=== PATIENT | female | born 1950 | race Caucasian/White ===

== ENCOUNTER 2016-09-16 14:21 | Emergency (ER) | payer MEDICARE, OTHER | END 2016-09-16 15:39 | disposition home or self-care (01) | DX: R21 Rash and other nonspecific skin eruption (principal); R03.0 Elevated blood-pressure reading, without diagnosis of hypertension ==

== ENCOUNTER 2017-04-06 11:56 | Inpatient (IN) | payer MEDICARE, OTHER ==
[2017-04-06] MEDS ORDERED: SODIUM CHLORIDE 0.9% 1,000 ML IV ONE ×2 (13:20)
--- NOTE | 2017-04-06 13:20 | ED Physician Documentation ---
PD HPI ABD PAIN - Stated complaint Stated Complaint: BLOATING/PAIN ALL OVER - Chief complaint Chief Complaint: Abd Pain - History obtained from History obtained from: Patient, Family - History of Present Illness Timing - onset: How many days ago (3) Timing - duration: Days (3) Timing - details: Gradual onset Pain level max: 9 Pain level now: 6 Location: All over / everywhere (worse epigastric) Improved by: Other (nothing) Worsened by: Other (nothing) Associated symptoms: Nausea. No: Fever, Vomiting, Diarrhea, Constipation, Dysuria, Hematuria, Chest pain, Dizzy, Near syncope / syncope Similar symptoms before: No diagnosis Recently seen: Clinic (sent from clinic for eval. found to have elevated WBC on lab testing today.) - Additional information Additional information: 66 yo F with h/o cardiac stents 10 years ago. Remote h/o of appendectomy and cholecystectomy. States had CT enterography 3 weeks ago. States epigastric abd pain x 3 days. Cramping. Worse at night. Review of Systems Ten Systems: 10 systems reviewed and negative Constitutional: reports: Chills. denies: Fever Nose: denies: Rhinorrhea / runny nose Throat: denies: Dental pain / toothache, Sore throat Cardiac: denies: Chest pain / pressure Respiratory: denies: Dyspnea GI: reports: Nausea. 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 - Present Medications Home Medications: Ambulatory Orders Medication Instructions Recorded Confirmed Amlodipine Besylate/Benazepril 1 tab PO DAILY 03/21/14 04/06/17 [Lotrel 5-40 mg Capsule] Atenolol 100 mg PO DAILY 03/21/14 04/06/17 Esomeprazole Magnesium [Nexium] 40 mg PO DAILY 03/21/14 04/06/17 Rosuvastatin Calcium [Crestor] 10 mg PO DAILY 03/21/14 04/06/17 Clopidogrel Bisulfate [Plavix] 75 mg ORAL DAILY 09/16/16 04/06/17 - Allergies Allergies/Adverse Reactions: Allergies Allergy/AdvReac Type Severity Reaction Status Date / Time iopamidol [From Isovue-128] Allergy Anaphylaxis Verified 04/06/17 15:11 acetaminophen [From Percocet] AdvReac Unknown Verified 04/06/17 12:03 aspirin AdvReac Unknown Verified 04/06/17 12:03 caffeine [From Norgesic] AdvReac Unknown Verified 04/06/17 12:03 codeine phosphate * AdvReac Unknown Verified 04/06/17 12:03 [From Tylenol-Codeine #3] hydrochlorothiazide AdvReac Unknown Verified 04/06/17 12:03 ibuprofen AdvReac Unknown Verified 04/06/17 12:03 indomethacin AdvReac Unknown Verified 04/06/17 12:03 meperidine HCl * AdvReac Unknown Verified 04/06/17 12:03 [From Demerol] NSAIDS (Non-Steroidal AdvReac Unknown Verified 04/06/17 12:03 Anti-Inflamma orphenadrine AdvReac Unknown Verified 04/06/17 12:03 orphenadrine citrate * AdvReac Unknown Verified 04/06/17 12:03 [From Norgesic] oxycodone HCl * AdvReac Unknown Verified 04/06/17 12:03 [From Percocet] tolmetin AdvReac Unknown Verified 04/06/17 12:03 - Social History Does the pt smoke?: No Smoking Status: Never smoker Does the pt drink ETOH?: No Does the pt have substance abuse?: No - Immunizations Immunizations are current?: No - POLST Patient has POLST: No PD ED PE NORMAL - Vitals Vital signs reviewed: Yes - General General: Alert and oriented X 3, No acute distress, Well developed/nourished - HEENT HEENT: PERRL, Moist mucous membranes - Neck Neck: Supple, no meningeal sign - Cardiac Cardiac: RRR, Strong equal pulses - Respiratory Respiratory: No respiratory distress, Clear bilaterally - Abdomen Abdomen: Soft, Other (TTP epigastric No peritoneal signs) - Back Back: No CVA TTP, No spinal TTP - Derm Derm: Warm and dry, No rash - Extremities Extremities: No edema - Neuro Neuro: Alert and oriented X 3 - Psych Psych: Normal mood, Normal affect Results - Vitals Vitals: Vital Signs - 24 hr 04/06/17 11:59 Temperature 36.7 C Heart Rate 79 Respiratory 16 Rate Blood Pressure 118/69 O2 Saturation 99 Oxygen O2 Source Room air - Labs Labs: Laboratory Tests 04/06/17 04/06/17 14:20 14:20 WBC 16.0 H RBC 4.33 Hgb 12.5 Hct 37.3 MCV 86.2 MCH 28.9 MCHC 33.6 RDW 14.2 Plt Count 226 MPV 8.4 Neut # 12.7 H Lymph # 1.5 [place] # 1.2 H Eos # 0.6 Baso # 0.1 Absolute Nucleated RBC 0.00 Nucleated RBCs 0.0 Sodium 134 L Potassium 4.2 Chloride 98 L Carbon Dioxide 26 Anion Gap 10.0 BUN 13 Creatinine 0.9 Estimated GFR (MDRD) 63 L Glucose 117 H Calcium 9.4 Total Bilirubin 1.0 AST 91 H ALT 77 H Alkaline Phosphatase 115 Total Protein 7.9 Albumin 3.7 Globulin 4.2 Albumin/Globulin Ratio 0.9 L Lipase 198 H - Rads (name of study) CT abd/pelvis Radiology: Prelim report reviewed, EMP read contemporaneously, See rad report ( Markedly abnormal pancreas and peripancreatic adenopathy and edema. Although the findings may just be secondary to chronic recurrent pancreatitis, the extensive disproportionately number of enlarged adjacent adenopathy is worrisome for underlying pancreatic malignancy. MRI of the pancreas recommended to further evaluate since this lady is allergic to intravenous contrast. 2. Mild extrahepatic biliary duct dilatation. 3. Colonic diverticulosis. 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 Found to have pancreatitis on CT scan and laboratory testing. Is already status post cholecystectomy. Denies any alcohol use. She is on an LINK inhibitor which may be causing her pancreatitis. May be idiopathic. May be secondary to triglycerides? Unable to use IV contrast for her CT scan as she is allergic to this. Will keep her n.p.o. and have her placed in the hospital for further evaluation and care. Discussed the case with Dr. Hernandez, hospitalist who accepts This document was made in part using voice recognition software. While efforts are made to proofread this document, sound alike and grammatical errors may occur. Departure - Departure Disposition: 66 [facility] DC/Xfer Clinical Impression: Pancreatitis Qualifiers: Chronicity: acute Pancreatitis type: unspecified pancreatitis type Acute pancreatitis complication: unspecified Qualified Code(s): K85.90 - Acute pancreatitis without necrosis or infection, unspecified Condition: Stable Discharge Date/Time: 04/06/17 18:45
[2017-04-06 14:27] LABS: BASOPHILS # (AUTO) 0.1 10^3/uL (0.0-0.1); BASOPHILS % (AUTO) 0.3 %; EOSINOPHILS # (AUTO) 0.6 10^3/uL (0.0-0.7); EOSINOPHILS % (AUTO) 3.6 %; HCT - HEMATOCRIT 37.3 % (37.0-47.0); HGB - HEMOGLOBIN 12.5 g/dL (12.0-16.0); LYMPHOCYTES # (AUTO) 1.5 10^3/uL (1.5-3.5); LYMPHOCYTES % (AUTO) 9.6 %; MEAN CORPUSCULAR HEMOGLOBIN 28.9 pg (27.0-31.0); MEAN CORPUSCULAR HGB CONC 33.6 g/dL (32.0-36.0); MEAN CORPUSCULAR VOLUME 86.2 fL (81.0-99.0); MEAN PLATELET VOLUME 8.4 fL (7.9-10.8); MONOCYTES # (AUTO) 1.2 10^3/uL (0.0-1.0); MONOCYTES % (AUTO) 7.4 %; NEUTROPHILS # (AUTO) 12.7 10^3/uL (1.5-6.6); NEUTROPHILS % (AUTO) 79.1 %; RED BLOOD COUNT 4.33 10^6/uL (4.20-5.40); RED CELL DISTRIBUTION WIDTH 14.2 % (12.0-15.0)
[2017-04-06 14:39] LABS: ALBUMIN/GLOBULIN RATIO 0.9 (1.0-2.2); CALCIUM 9.4 mg/dL (8.5-10.3); CREATININE 0.9 mg/dL (0.4-1.0); POTASSIUM 4.2 mmol/L (3.5-5.0); TOTAL PROTEIN 7.9 g/dL (6.7-8.2)
[2017-04-06] MEDS ORDERED: ACETAMINOPHEN 1,000 MG/100 ML 100 ML IV STA (16:22)
--- NOTE | 2017-04-06 16:28 | CT Preliminary Report ---
Exam: CT Abdomen/Pelvis W/O IMPRESSION: 1. Markedly abnormal pancreas and peripancreatic adenopathy and edema. Although the findings may just be secondary to chronic recurrent pancreatitis, the extensive disproportionately number of enlarged adjacent adenopathy is worrisome for underlying pancreatic malignancy. MRI of the pancreas recommende d to further evaluate since this lady is allergic to intravenous contrast. 2. Mild extrahepatic biliary duct dilatation. 3. Colonic diverticulosis. [facility] SITE ID: [id number]
--- NOTE | 2017-04-06 16:42 | CT Report ---
EXAM: CT ABDOMEN AND PELVIS EXAM DATE: 04/06/2017 04:03 PM. CLINICAL HISTORY: Epigastric pain for 3 days. COMPARISONS: None. TECHNIQUE: Routine helical CT imaging was performed through the abdomen and pelvis. IV contrast: None (contrast allergy). Enteric contrast: No. Reconstructions: Coronal and sagittal. In accordance with CT protocol optimization, one or more of the following dose reduction techniques w ere utilized for this exam: automated exposure control, adjustment of mA and/or KV based on patient s ize, or use of iterative reconstructive technique. FINDINGS: Lung Bases: Small hiatal hernia. Liver: Normal. No masses. Gallbladder/Bile Ducts: Gallbladder either surgically absent or extremely tiny. No intrahepatic bilia ry duct dilatation. Common bile duct measures 11 mm. Spleen: Normal caliber. Calcified granulomata. Pancreas: Head and uncinate process are enlarged. Body and tail of the pancreas of normal caliber. No pancreatic duct dilatation. Massive amount of adenopathy, with some lymph nodes ranging up to 2 cm i n cross-sectional diameter surrounding the entirety of the pancreas, embedded in a marked amount of a djacent edema. Small amount of linear fluid extends inferiorly from such along the posterior aspects of Gerota's fascia into the more inferior retroperitoneal space. No focal fluid collection evident. Adrenal Glands: Normal. Kidneys: Normal. 2 cm left renal cyst. No masses or hydronephrosis. Peritoneal Cavity/Bowel: Diverticuli of the colon. No free fluid, free air or adenopathy. No masses o r acute inflammatory process. Appendix not visualized. Pelvic Organs: Hysterectomy. No stones in the small caliber urinary bladder. No free fluid nor adnexa l mass lesions. Vasculature: No aneurysms or other significant abnormality. Bones: No bony metastatic disease. Moderate degenerative changes throughout the mildly scoliotic spin e. Other: None. IMPRESSION: 1. Markedly abnormal pancreas and peripancreatic adenopathy and edema. Although the findings may just be secondary to chronic recurrent pancreatitis, the extensive disproportionately number of enlarged adjacent adenopathy is worrisome for underlying pancreatic malignancy. MRI of the pancreas recommende d to further evaluate since this lady is allergic to intravenous contrast. 2. Mild extrahepatic biliary duct dilatation. 3. Colonic diverticulosis. [facility] Referring Provider Line: [phone] SITE ID: [id number]
[2017-04-06] MEDS ORDERED: ACETAMINOPHEN 1,000 MG/100 ML 100 ML IV ONE (17:24)
[2017-04-06] MEDS ORDERED: SODIUM CHLORIDE FLUSH 0.9% 10 ML SYRINGE IVP ONE (17:28)
[2017-04-06] MEDS ORDERED: ONDANSETRON ODT 4 MG TABLET TL PRN (17:33)
[2017-04-06] MEDS ORDERED: ACETAMINOPHEN 1,000 MG/100 ML 100 ML IV PRN (17:33)
[2017-04-06] MEDS ORDERED: ONDANSETRON 4 MG/2 ML VIAL IVP PRN (17:33)
[2017-04-06] MEDS ORDERED: ACETAMINOPHEN 325 MG TABLET PO PRN (17:33)
[2017-04-06] MEDS ORDERED: SODIUM CHLORIDE FLUSH 0.9% 10 ML SYRINGE IVP PRN (17:33)
[2017-04-06] MEDS: DEXTROSE 5%-0.45% NACL 1,000 ML IV SCH (18:55)
--- NOTE | 2017-04-06 18:59 | HISTORY & PHYSICAL EXAMINATION ---
DATE OF ADMISSION: 04/06/2017 PRIMARY CARE PHYSICIAN: Dr. Sotero Alfredo, [facility] CHIEF COMPLAINT: This is a 66-year-old lady admitted with a chief complaint of sudden onset upper abdominal pain for 3 days on and off. Seen by PCP today and she was sent to the emergency room by her PCP. Information was obtained from the patient, family and ER record. PROBLEM LIST: 1. Acute pancreatitis, etiology unknown. 2. Hyponatremia. 3. Elevated AST and ALT levels. 4. Leukocytosis. 5. Hypertension. 6. Hyperlipidemia. 7. History of coronary artery disease status post stent 10 years ago, on Plavix. CODE STATUS: FULL CODE. HISTORY OF PRESENT ILLNESS: This 66-year-old lady with history of hypertension, hyperlipidemia, coronary artery disease status post stenting 10 years ago, borderline diabetes on diet control was in her usual state of health until 3 days ago. She started to notice no good bowel movement at that time. around 6pm that day, she suddenly had severe cramps all the way across her abdomen to her back. She did not have nausea, vomiting, fevers. She thought she had gas or constipation. She drank some Sprite which resolved the pain in 2 hours. since then, she has had on and off abdominal cramps, mainly happen in the evening. She could not sleep very well. She even cried, which was unusual for her. The pain was not bothering her during the day. She walks 2 miles every day. She also noticed eating would aggravate the pain. So since Sunday she only had 2 bowls of cereal and some fruits. She has not had a similar experience before. Today she went to see her primary care doctor. In the clinic, she had a diarrhea like yellow bowel movement, which relieved some abdominal pain. After her blood test result was available, she was advised by her primary care doctor to visit the emergency room due to abnormality. In the emergency room, the patient was noted to have mild elevated lipase level 198 and leukocytosis of [address] of abdomen and pelvis. The results show abnormal pancreas and peripancreatic adenopathy and edema. Due to acute pancreatitis, etiology uncertain, the patient is admitted to the medical/ surgical floor for further evaluation. REVIEW OF SYSTEMS: The patient was seen in the emergency room. she has chills all the time on the daily basis but no fevers. She has denied chest pain, shortness of breath, dysuria. The patient lost 5-6 pounds in the past 1-1/2 months, mainly from walking. The weight loss was intentional. Negative findings in the rest of review of systems. PAST MEDICAL AND SURGICAL HISTORY: Besides mentioned above, the patient had appendectomy, cholecystectomy, bowel surgery, back surgery and hysterectomy. SOCIAL HISTORY: The patient quit smoking 15 years ago. She does not consume alcohol. Neither recreational drugs. She lives with her locally. FAMILY HISTORY: Mother of colon cancer. Father of cirrhosis. MEDICATIONS: 1. Atenolol 100 mg daily. 2. Lotrel 5/50, 1 daily. 3. Plavix 75 mg daily. 4. Crestor 10 mg daily. 5. Nexium 40 mg daily. ALLERGIES: 1. ASPIRIN. 2. DEMEROL. 3. IBUPROFEN. 4. HYDROCHLOROTHIAZIDE. 5. INDOMETHACIN 6. ANALGESIC AND NONSTEROIDAL ANTI-INFLAMMATORY DRUGS. 7. PERCOCET. 8. ORPHENADRINE CITRATE. 9. TOLMETIN SODIUM. 10. CODEINE. 11. MORPHINE. 12. FENTANYL. All the allergic reactions are severe with anaphylactic reaction. She has never had Dilaudid before. PHYSICAL EXAMINATION: CONSTITUTIONAL: In no acute distress. VITAL SIGNS: Temperature 36.7, heart rate 79, blood pressure 118/69, respirations 16, oxygen saturation 99% on room air. HEENT: Head atraumatic. PERRLA, normal conjunctivae. No jaundice. Oropharynx clear, no thrush. NECK: Supple. Thyroid impalpable. No lymphadenopathy. RESPIRATORY: Clear bilateral without wheezing or rhonchi, or rales. CARDIOVASCULAR: Regular heart rate and rhythm without murmur. GASTROINTESTINAL: Abdomen soft. Bowel tones present. She does have moderate tenderness around her upper abdomen to her back. Abdomen is not distended. No spleen and liver enlargement per palpation. MUSCULOSKELETAL: No edema noted. Muscle tone 5+ equally. SKIN: Warm and dry. NEUROLOGIC: Alert and oriented x3. Cranial nerves intact without focal deficits. PSYCHIATRIC: Calm and pleasant. LABORATORY: CMP shows sodium 134, potassium 4.2, chloride 98, serum bicarbonate of 26, BUN 13, creatinine 0.9, glucose 117, ALT is 77, AST 91, lipase level 198 , total bilirubin 1.0. CBC shows white blood cell count 16, hemoglobin 12.5, hematocrit 37.3, platelets 226. IMAGING: CT of abdomen and pelvis today shows abnormal pancreas and peripancreatic adenopathy and edema. MRI of the pancreas recommended for further evaluation. Mild extraoral hepatitic biliary ductal dilatation. Colonic diverticulosis. ASSESSMENT AND PLAN: 1. Acute pancreatitis, etiology uncertain. a. The patient is taking LINK inhibitor which could be a cause. We will hold her LINK inhibitor for now. b. The patient does not consume alcohol. Alcoholic pancreatitis is unlikely. c. The patient has history of gallbladder removed. She has normal total bilirubin, although her CAT scan showed mild common bile duct dilation. She could have had gallstones passing through the common bile duct, which contribute to pancreatitis. MRCP is ordered for further evaluation. d. Possible pancreatic cancer is another differential diagnosis. e. Possible unknown inflammatory process such as infection might be the factor to contribute. She does have elevated CRP level of 26.7 at the [facility]. Due to acute pancreatitis the patient will be n.p.o. except medications and sip rand. She will receive IV fluids for hydration. She has MULTIPLE MEDICATION ALLERGIES. For now we will use Tylenol IV or p.o. for her pain control. We will consider the Dilaudid IV for severe or breakthrough pain. If she is getting Dilaudid we will need to monitor her respiratory status closely for possible severe allergic reaction such as ANAPHYLAXIS. 2. Hypertension. We will continue the atenolol with parameters. 3. Hyperlipidemia. We will continue the Crestor. 4. History of coronary artery disease stenting x1 ten years ago. We will continue the Plavix. Meanwhile, we will use the Pepcid IV for GI protection. 5. Hyponatremia-- mild; monitor; on ivf 6. Elevated AST and ALT levels-- likely due to pancreatitis; CT of abdomen shows normal liver 7. Leukocytosis-- could be from pain vs infection/inflammation; monitor; clinically no respiratory symptoms; consider UA if no result available ( done in [facility]) 8. The patient will be on DVT prophylaxis with Lovenox. 9. Disposition: Likely the patient will be discharged back to home in 2-3 days if she is improving clinically. 10. Code status was addressed with her and her . She is a FULL CODE. TREATMENT PLAN: Reviewed with the patient and her at bedside. Both agreed to the hospitalization. JOB #: [id number] EXT JOB #:[id number] MAIRA
[2017-04-06] MEDS: ATORVASTATIN 10 MG TABLET PO SCH (21:09)
[2017-04-06] MEDS: SODIUM CHLORIDE FLUSH 0.9% 10 ML SYRINGE IVP SCH (21:09)
[2017-04-06] MEDS: FAMOTIDINE 20 MG/50 ML 50 ML IV SCH (21:09)
[2017-04-07] MEDS: DEXTROSE 5%-0.45% NACL 1,000 ML IV SCH ×3 (03:58→23:55)
[2017-04-07] MEDS ORDERED: LORazepam 2 MG/ML SYRINGE IVP SCH (05:00)
[2017-04-07] MEDS: SODIUM CHLORIDE FLUSH 0.9% 10 ML SYRINGE IVP SCH ×3 (05:21→20:29)
[2017-04-07 06:34] LABS: BASOPHILS % (AUTO) 0.2 %; EOSINOPHILS # (AUTO) 0.7 10^3/uL (0.0-0.7); EOSINOPHILS % (AUTO) 5.3 %; HCT - HEMATOCRIT 35.1 % (37.0-47.0); HGB - HEMOGLOBIN 11.8 g/dL (12.0-16.0); LYMPHOCYTES % (AUTO) 8.1 %; MEAN CORPUSCULAR HEMOGLOBIN 29.3 pg (27.0-31.0); MEAN CORPUSCULAR HGB CONC 33.5 g/dL (32.0-36.0); MEAN CORPUSCULAR VOLUME 87.3 fL (81.0-99.0); MEAN PLATELET VOLUME 8.4 fL (7.9-10.8); MONOCYTES # (AUTO) 0.8 10^3/uL (0.0-1.0); MONOCYTES % (AUTO) 6.5 %; NEUTROPHILS # (AUTO) 10.1 10^3/uL (1.5-6.6); NEUTROPHILS % (AUTO) 79.9 %; RED BLOOD COUNT 4.02 10^6/uL (4.20-5.40); RED CELL DISTRIBUTION WIDTH 14.2 % (12.0-15.0); UNCORRECTED WHITE BLOOD COUNT 12.6 x10^3/uL; WHITE BLOOD COUNT 12.6 x10^3/uL (4.8-10.8)
[2017-04-07 06:55] LABS: ALBUMIN/GLOBULIN RATIO 0.9 (1.0-2.2); BILIRUBIN,TOTAL 0.8 mg/dL (0.2-1.0); CALCIUM 8.7 mg/dL (8.5-10.3); CREATININE 0.8 mg/dL (0.4-1.0); POTASSIUM 4.1 mmol/L (3.5-5.0); TOTAL PROTEIN 6.7 g/dL (6.7-8.2)
[2017-04-07] MEDS: CLOPIDOGREL 75 MG TABLET PO SCH (08:46)
[2017-04-07] MEDS: ATENOLOL 25 MG TABLET PO SCH (08:46)
[2017-04-07] MEDS: POLYETHYLENE GLYCOL 3350 17 GM PACKET PO SCH (08:48)
[2017-04-07] MEDS ORDERED: NON FORMULARY MED (Atenolol [Atenolol] 100 MG) PO SCH (09:00)
[2017-04-07] MEDS ORDERED: ENOXAPARIN 40 MG/0.4 ML SYRINGE SUBQ SCH (09:00)
[2017-04-07] MEDS ORDERED: diphenhydrAMINE INJ 50 MG/ML VIAL IVP PRN (09:57)
[2017-04-07 10:39] LABS: BILIRUBIN,URINE NEGATIVE (NEGATIVE)
--- NOTE | 2017-04-07 11:00 | PROVIDER PROGRESS NOTE ---
Assessment/Plan - Problem List (1) Pancreatitis Qualifiers: Chronicity: acute Pancreatitis type: unspecified pancreatitis type Acute pancreatitis complication: unspecified Qualified Code(s): K85.90 - Acute pancreatitis without necrosis or infection, unspecified Assessment/Plan: etiology uncertain, improving clinically hold her ACEI pending MRCP result prn tylenol for pain after MRCP, diet as tolerated (2) Elevated liver enzymes Assessment/Plan: likely due to pancreatitis liver looks normal in CT of abdomen no significant changes over the night (3) Leukocytosis Assessment/Plan: from pain, inflammation improving clinically no signs of respiratory infection noted; check UA (4) Hypertension Assessment/Plan: on Atenolol; controlled (5) Hyperlipidemia Assessment/Plan: on crestor (6) Hyponatremia Assessment/Plan: resolving; on iv fluid (7) CAD (coronary artery disease) Assessment/Plan: stable; continue plavix; use Pepcid for GI protection - Current Meds Current Meds: Current Medications Generic Name Dose Route Start Last Admin Trade Name Freq PRN Reason Stop Dose Admin Atenolol 100 mg 04/07/17 09:00 04/07/17 08:46 Tenormin PO 100 mg DAILY SARAH Administration Atorvastatin Calcium 20 mg 04/06/17 21:00 04/06/17 21:09 Lipitor PO Not Given QPM SARAH Clopidogrel Bisulfate 75 mg 04/07/17 09:00 04/07/17 08:46 Plavix PO 75 mg DAILY SARAH Administration Dextrose/Sodium Chloride 1,000 mls @ 100 mls/hr 04/06/17 18:00 04/07/17 03:58 D5.45ns IV 100 mls/hr .Q10H SARAH Administration Famotidine 50 mls @ 100 mls/hr 04/06/17 21:00 04/06/17 21:09 Pepcid 20 Mg/50 Ml IV Not Given BID SARAH Polyethylene Glycol 17 gm 04/07/17 09:00 04/07/17 08:48 Miralax PO Not Given DAILY SARAH Sodium Chloride 10 ml 04/06/17 17:33 04/07/17 09:56 Normal Saline Flush 0.9% IVP 10 ml PRN PRN Administration NEEDED PER PROVIDER ORDERS Sodium Chloride 10 ml 04/06/17 22:00 04/07/17 05:21 Normal Saline Flush 0.9% IVP Not Given Q8HR SARAH - Lab Result Fish Bone Diagrams: 04/07/17 06:00 04/07/17 06:00 Other Lab Results: reviewed tele; sinus rhythm - Diagnostic Imaging Results Diagnostic Imaging Results: Final report reviewed - Additional Planning Condition/Complexity: Improved My Orders: My Active Orders 04/06/17 18:09 Message to Nursing [RC] CONT 04/06/17 21:00 Atorvastatin [Lipitor] 20 mg PO QPM 04/07/17 MRCP W/O [MRI] Stat 04/07/17 09:00 Atenolol [Tenormin] 100 mg PO DAILY Clopidogrel [Plavix] 75 mg PO DAILY 04/07/17 09:40 UA, MICROSCOPIC IF INDICATED [URIN] Routine 04/07/17 09:57 diphenhydrAMINE INJ [Benadryl Inj] 25 mg IVP PRN PRN Plan Discussed with:: Patient Time Spent: 15-30 minutes Subjective - Subjective Patient Reports: Other (hungry; no pain at all) Nursing Reports: No Complaints Objective Vital Signs: Vital Signs - 24 hr 04/06/17 04/06/17 04/06/17 18:24 18:49 19:15 Temperature 36.9 C 37.2 C Heart Rate 82 Heart Rate [ 76 64 Brachial] Respiratory 14 18 Rate Blood Pressure 126/63 Blood Pressure 117/49 L [Left Brachial artery] Blood Pressure 99/63 [Right Brachial artery] O2 Saturation 100 92 96 04/06/17 04/06/17 04/07/17 20:11 23:32 05:17 Temperature 36.7 C 36.4 C L 37.8 C H Heart Rate Heart Rate [ 78 71 83 Brachial] Respiratory 20 20 18 Rate Blood Pressure Blood Pressure 112/55 L 113/61 114/61 [Left Brachial artery] Blood Pressure [Right Brachial artery] O2 Saturation 96 100 95 04/07/17 07:59 Temperature 37.0 C Heart Rate Heart Rate [ 88 Brachial] Respiratory 16 Rate Blood Pressure Blood Pressure 123/52 L [Left Brachial artery] Blood Pressure [Right Brachial artery] O2 Saturation 93 Oxygen O2 Source Room air I&O (Last 24 Hrs): Intake and Output Totals x24h 04/05/17 04/06/17 04/07/17 23:59 23:59 23:59 Intake Total 1125 Output Total 1 Balance 1124 General: Alert, Oriented x3, Cooperative HEENT: Atraumatic, PERRLA, EOMI Neck: Supple Neuro: Alert, Non Focal Cardiovascular: Regular rate, Normal S1, Normal S2 Abdomen: Normal bowel sounds, Soft, No tenderness Extremities: No clubbing, No cyanosis Skin: No rashes - Results Results: Laboratory Results WBC 12.6 x10^3/uL (4.8-10.8) H 04/07/17 06:00 RBC 4.02 10^6/uL (4.20-5.40) L 04/07/17 06:00 Hgb 11.8 g/dL (12.0-16.0) L 04/07/17 06:00 Hct 35.1 % (37.0-47.0) L 04/07/17 06:00 MCV 87.3 fL (81.0-99.0) 04/07/17 06:00 MCH 29.3 pg (27.0-31.0) 04/07/17 06:00 MCHC 33.5 g/dL (32.0-36.0) 04/07/17 06:00 RDW 14.2 % (12.0-15.0) 04/07/17 06:00 Plt Count 210 10^3/uL (130-450) 04/07/17 06:00 MPV 8.4 fL (7.9-10.8) 04/07/17 06:00 Neut # 10.1 10^3/uL (1.5-6.6) H 04/07/17 06:00 Lymph # 1.0 10^3/uL (1.5-3.5) L 04/07/17 06:00 [place] # 0.8 10^3/uL (0.0-1.0) 04/07/17 06:00 Eos # 0.7 10^3/uL (0.0-0.7) 04/07/17 06:00 Baso # 0.0 10^3/uL (0.0-0.1) 04/07/17 06:00 Absolute Nucleated RBC 0.00 x10^3/uL 04/07/17 06:00 Nucleated RBCs 0.0 /100WBC 04/07/17 06:00 Sodium 140 mmol/L (135-145) 04/07/17 06:00 Potassium 4.1 mmol/L (3.5-5.0) 04/07/17 06:00 Chloride 107 mmol/L (101-111) 04/07/17 06:00 Carbon Dioxide 25 mmol/L (21-32) 04/07/17 06:00 Anion Gap 8.0 (6-13) 04/07/17 06:00 BUN 10 mg/dL (6-20) 04/07/17 06:00 Creatinine 0.8 mg/dL (0.4-1.0) 04/07/17 06:00 Estimated GFR (MDRD) 72 (>89) L 04/07/17 06:00 Glucose 172 mg/dL (70-100) H 04/07/17 06:00 Calcium 8.7 mg/dL (8.5-10.3) 04/07/17 06:00 Total Bilirubin 0.8 mg/dL (0.2-1.0) 04/07/17 06:00 AST 81 IU/L (10-42) H 04/07/17 06:00 ALT 74 IU/L (10-60) H 04/07/17 06:00 Alkaline Phosphatase 120 IU/L (42-121) 04/07/17 06:00 Total Protein 6.7 g/dL (6.7-8.2) 04/07/17 06:00 Albumin 3.1 g/dL (3.2-5.5) L 04/07/17 06:00 Globulin 3.6 g/dL (2.1-4.2) 04/07/17 06:00 Albumin/Globulin Ratio 0.9 (1.0-2.2) L 04/07/17 06:00 Lipase 184 U/L (22-51) H 04/07/17 06:00
[2017-04-07 11:04] LABS: UA w/ MICROSCOPIC CHARGE YES
[2017-04-07] MEDS: FAMOTIDINE 20 MG/50 ML 50 ML IV SCH ×2 (11:38→20:29)
--- NOTE | 2017-04-07 11:51 | MRI Report ---
EXAM: MR ABDOMEN WITHOUT CONTRAST (MR CHOLANGIOPANCREATOGRAPHY) EXAM DATE: 04/07/2017 11:08 AM. CLINICAL HISTORY: Acute pancreatitis unknown etiology. COMPARISON: Abdomen/pelvis CT 04/06/2017. TECHNIQUE: Multiplanar breath-hold T1 and T2 sequences obtained through the abdomen on an MR scanner. Dedicated 2D and 3D MRCP sequences obtained through the biliary and pancreatic ducts. No intravenous contrast given. FINDINGS: Lung Bases: The visualized lung bases are clear. There is a small hiatal hernia. Liver: The liver has normal size, morphology and signal. No evidence of mass. The intrahepatic bile d ucts appear normal. CBD: Prominent caliber of the extrahepatic bile duct measuring up to 0.8 cm in diameter proximally an d smoothly tapering distally. No focal filling defects are identified. Gallbladder: The gallbladder appears to be absent. Pancreas: There is mild peripancreatic and retroperitoneal edema. The pancreas itself appears unremar kable although evaluation for masses limited in the absence of intravenous contrast medium. The pancr eatic duct measures 1 mm in diameter and appears normal with no stone or stricture. Spleen: The spleen appears normal. Kidneys and Adrenals: The kidneys appear normal with no mass or hydronephrosis. There are no cysts in the kidneys. The adrenals appear normal. Bowel: The small bowel and colon appear normal with no inflammation or obstruction. Retroperitoneum: There is retroperitoneal adenopathy left of the aorta. For example, series 501 image 8 measuring 0.8 x 1.5 cm. IMPRESSION: 1. There is peripancreatic and retroperitoneal edema consistent with the provided history of acute pa ncreatitis. No drainable or well-defined collections are identified. 2. There is retroperitoneal lymphadenopathy. 3. The pancreas itself appears within normal limits although evaluation for mass is limited in the ab sence of intravenous contrast medium. 4. The gallbladder appears to be absent. The extra hepatic bile duct is dilated which is a finding th at can be seen following cholecystectomy. [facility] Referring Provider Line: [phone] SITE ID: [id number]
[2017-04-07] MEDS: ATORVASTATIN 10 MG TABLET PO SCH (20:29)
[2017-04-08] MEDS: SODIUM CHLORIDE FLUSH 0.9% 10 ML SYRINGE IVP SCH (05:04)
[2017-04-08 06:42] LABS: BASOPHILS % (AUTO) 0.4 %; EOSINOPHILS % (AUTO) 9.9 %; HCT - HEMATOCRIT 33.4 % (37.0-47.0); HGB - HEMOGLOBIN 11.3 g/dL (12.0-16.0); LYMPHOCYTES # (AUTO) 1.5 10^3/uL (1.5-3.5); MEAN CORPUSCULAR HEMOGLOBIN 29.1 pg (27.0-31.0); MEAN CORPUSCULAR HGB CONC 33.7 g/dL (32.0-36.0); MEAN CORPUSCULAR VOLUME 86.5 fL (81.0-99.0); MEAN PLATELET VOLUME 8.4 fL (7.9-10.8); MONOCYTES # (AUTO) 0.7 10^3/uL (0.0-1.0); MONOCYTES % (AUTO) 7.1 %; NEUTROPHILS # (AUTO) 6.8 10^3/uL (1.5-6.6); NEUTROPHILS % (AUTO) 67.6 %; RED BLOOD COUNT 3.86 10^6/uL (4.20-5.40); RED CELL DISTRIBUTION WIDTH 14.3 % (12.0-15.0)
[2017-04-08 06:55] LABS: ALBUMIN/GLOBULIN RATIO 0.8 (1.0-2.2); BILIRUBIN,TOTAL 0.7 mg/dL (0.2-1.0); CALCIUM 8.3 mg/dL (8.5-10.3); CREATININE 0.7 mg/dL (0.4-1.0); POTASSIUM 3.1 mmol/L (3.5-5.0); TOTAL PROTEIN 6.2 g/dL (6.7-8.2)
[2017-04-08] MEDS ORDERED: NON FORMULARY MED (Omeprazole [Omeprazole] 20 MG) PO SCH (07:00)
[2017-04-08 07:28] VITALS: BP 116/65
[2017-04-08] MEDS ORDERED: POTASSIUM CHLORIDE 20 MEQ TABLET PO ONE (08:00)
[2017-04-08] MEDS: POLYETHYLENE GLYCOL 3350 17 GM PACKET PO SCH (08:12)
[2017-04-08] MEDS: ATENOLOL 25 MG TABLET PO SCH (08:25)
[2017-04-08] MEDS: FAMOTIDINE 20 MG/50 ML 50 ML IV SCH (08:25)
[2017-04-08] MEDS: CLOPIDOGREL 75 MG TABLET PO SCH (08:25)
--- NOTE | 2017-04-08 08:54 | Discharge Plan ---
Discharge Plan Disposition: Home, Self Care Condition: Good Prescriptions: Acetaminophen [Tylenol] 650 mg PO Q6HR PRN #30 tablet PRN Reason: Pain 1 to 4 Diet: Low Sodium (if you tolerate full liquid diet without having abdominal pain , gradually go back to your regular diet) Activity Restrictions: No Restrictions Additional Instructions or Follow Up instructions: see your PCP in a week; monitor your condition; check your lipase, liver function test then have your doctor refer you to a tourist camp attendant for recent pancreatitis; consider ERCP your crestor is discontinued as well as Lotrel due to side effects of pancreatitis and abnormal liver function; your doctor will restart those meds if indicated if you feel very sick, such as fever, chill, nausea, vomiting, chest pain or pressure, short of breath, can't keep things down, contact your doctor right away or call 911 Eat healthy diet ( low fat, low carbohydrate and low salt) Exercise 30 minutes daily at least as you can tolerate Follow up with your PCP, specialist(s) as instructed. Monitor your blood pressure, heart rate/rhythm at home 1 to 2 times a day; show the results to your doctor(s). It will help them adjust your medications Watch for bleedings, such as black/bloody stools, black/coffee ground emesis, very dizzy, weak; notify your doctor right away; notify doctors that you are taking blood thinners before any procedures No Smoking: If you smoke, Please STOP! Call for help. Follow-up with: Sotero Alfredo MD [Primary Care Provider] -
--- NOTE | 2017-04-08 09:02 | DISCHARGE SUMMARY ---
"Discharge Summary Admit Date: 04/06/17 Discharge Date: 04/08/17 Discharging Provider: ILYA Brown Primary Care Provider: Sotero Alfredo MD Code Status: Attempt Resuscitation Condition at Discharge: Good Discharge Disposition: 01 Home, Self Care - DIAGNOSES Admission Diagnoses: acute Pancreatitis Elevated liver enzymes Leukocytosis Hypertension Hyperlipidemia Hyponatremia CAD (coronary artery disease) Discharge Diagnoses with Status of Each Condition: acute Pancreatitis: etiology uncertain; could be drug induced vs malignance vs others; improving; need outpatient GI follow up; dc'd Crestor and Lotrel Elevated liver enzymes-- stable; pending Hepatitis ABC results Leukocytosis: resolved Hypertension: controlled Hyperlipidemia: stable Hyponatremia: resolved CAD (coronary artery disease): stable hypokalemia-- received supplement - HPI History of Present Illness: This 66 year old lady with history of HTN, HLP, CAD with stent several years ago was sent by her PCP to ED due to abnormal labs. She had 3 day history of abdominal pain. in ED, patient was found to have elevated lipase level; her CT of abdomen showed acute pancreatitis; due to acute pancreatitis, patient was admitted. please see details on H and P done by ILYA Wyatt on 04/06/17 - CONSULTS | PROCEDURES Consultations: none Procedures: none - HOSPITAL COURSE Hospital Course: acute pancreatitis, etiology uncertain: drug related vs malignance vs others? patient was on iv fluid for hydration, bowel resting. she received one dose iv Tylenol in ED; since then she has not had abdominal pain, her Lotrel was discontinued since ACEI could cause pancreatitis. she underwent MRCP, which re- demonstrated acute pancreatitis with retroperitoneal lymphadenopathy; the prancrease appears within normal limites although evaluation for mass is limted in the absence of intravenous contrast medium. after the MRCP, patient has tolerated full liquid diet without abdominal pain; her lipase level is down to 97, her AST and ALT level are still elevated. pending hepatitis ABC panel; she can be benefit from GI referral for further eval and treat patient was seen today; no fever, chills, nausea, vomit and abdominal pain. her crestor is discontinue also due to side effects of pancreatitis and hepatotoxicity. discharge plan was discussed with her. questions and concerns were answered. - ALLERGIES Allergies/Adverse Reactions: Allergies Allergy/AdvReac Type Severity Reaction Status Date / Time iopamidol [From Isovue-128] Allergy Anaphylaxis Verified 04/06/17 15:11 acetaminophen [From Percocet] AdvReac Unknown Verified 04/06/17 12:03 aspirin AdvReac Unknown Verified 04/06/17 12:03 caffeine [From Norgesic] AdvReac Unknown Verified 04/06/17 12:03 codeine phosphate * AdvReac Unknown Verified 04/06/17 12:03 [From Tylenol-Codeine #3] hydrochlorothiazide AdvReac Unknown Verified 04/06/17 12:03 ibuprofen AdvReac Unknown Verified 04/06/17 12:03 indomethacin AdvReac Unknown Verified 04/06/17 12:03 meperidine HCl * AdvReac Unknown Verified 04/06/17 12:03 [From Demerol] NSAIDS (Non-Steroidal AdvReac Unknown Verified 04/06/17 12:03 Anti-Inflamma orphenadrine AdvReac Unknown Verified 04/06/17 12:03 orphenadrine citrate * AdvReac Unknown Verified 04/06/17 12:03 [From Norgesic] oxycodone HCl * AdvReac Unknown Verified 04/06/17 12:03 [From Percocet] tolmetin AdvReac Unknown Verified 04/06/17 12:03 - MEDICATIONS Home Medications: Ambulatory Orders Medication Instructions Recorded Confirmed Atenolol 100 mg PO DAILY 03/21/14 04/07/17 Clopidogrel Bisulfate [Plavix] 75 mg PO DAILY 09/16/16 04/07/17 Omeprazole 20 mg PO BIDAC 04/07/17 04/07/17 Acetaminophen [Tylenol] 650 mg PO Q6HR PRN #30 tablet 04/08/17 Home Medications Other | Comments: discontinued her Crestor and Lotrel - PHYSICAL EXAM AT DISCHARGE General Appearance: positive: No acute distress, Alert, Mild distress Eyes Bilateral: positive: Normal inspection, PERRL ENT: positive: Pharynx nml, No signs of dehydration Neck: positive: Nml inspection Respiratory: positive: Chest non-tender, No respiratory distress, Breath sounds nml Cardiovascular: positive: Regular rate & rhythm, No murmur Abdomen: positive: Non-tender, No organomegaly, Nml bowel sounds, No distention Back: positive: Nml inspection Skin: positive: Color nml, No rash Extremities: positive: Non-tender, Full ROM Neurologic/Psychiatric: positive: Oriented x3 - LABS Result Diagrams: 04/08/17 05:56 04/08/17 05:56 - DIAGNOSTIC IMAGING Diagnostic Imaging Results: Final report reviewed Diagnostic Imaging Results Comments: MRCP 04/07/17 acute pancreatitis with retroperitoneal lymphadenopathy; the prancrease appears within normal limites although evaluation for mass is limted in the absence of intravenous contrast medium CT of abdomen/pelvis 04/06/17 Markedly abnormal pancreas and peripancrreatic adenopathy and edema; although the findings may be secondary to chronic recurrent pancreatitis, the extensive disproportionately number of enlarged adjacent adenopathy is worrisome for underlying pancreatic malignancy; mild extrahepatic biliary duct dilatation; colonic diverticulosis - FOLLOW UP Follow Up: with PCP; consider GI referral for ERCP; also monitor LFT; pending hepatitis ABC panel; resume crestor if indicated as well as Lotrel - TIME SPENT Time Spent in Discharge (Minutes): 35"
== END 2017-04-08 10:41 | disposition home or self-care (01) | DRG 439 ==
LOC: ED 11:56 → MS2 17:33
PROVIDERS: ADMIT Nurse Practitioner; ATTEND Nurse Practitioner
DX: K85.90 Acute pancreatitis without necrosis or infection, unspecified (principal); E87.1 Hypo-osmolality and hyponatremia; D72.829 Elevated white blood cell count, unspecified; R79.89 Other specified abnormal findings of blood chemistry; E87.6 Hypokalemia; I10 Essential (primary) hypertension; E78.5 Hyperlipidemia, unspecified; I25.10 Atherosclerotic heart disease of native coronary artery without angina pectoris; K21.9 Gastro-esophageal reflux disease without esophagitis; R59.0 Localized enlarged lymph nodes; R73.03 Prediabetes; Z79.02 Long term (current) use of antithrombotics/antiplatelets; Z79.899 Other long term (current) drug therapy; Z95.5 Presence of coronary angioplasty implant and graft; Z90.49 Acquired absence of other specified parts of digestive tract; Z87.891 Personal history of nicotine dependence
CPT/HCPCS: 36415; 74176; 74181; 80053; 80074; 81001; 81003; 83690; 85025; 86317; 86704; 86707; 86803; 87045; 87046; 87340; 87350; 87493; 96361; 96374; 99283; 99285

== ENCOUNTER 2018-07-04 10:22 | Emergency (ER) | payer MEDICARE, OTHER ==
[2018-07-04] MEDS ORDERED: diphenhydrAMINE INJ 50 MG/ML VIAL IM STA (11:05)
--- NOTE | 2018-07-04 11:09 | ED Physician Documentation ---
History of Present Illness - Stated complaint Stated Complaint: WASP STING - Chief complaint Chief Complaint: Allergic Rx - Additonal information Additional information: hx from pt 68 f to ED for a wasp sting it was in her gardening glove she has a hx of anaphylactic rxn so Ashu referred her to ER thankfully no soa or facial swelling she just feels diffusely weak and wobbly Review of Systems Throat: denies: Sore throat Respiratory: denies: Dyspnea GI: denies: Vomiting, Diarrhea Skin: reports: Other (sting) PD PAST MEDICAL HISTORY - Past Medical History GI: GERD - Past Surgical History Past Surgical History: Yes General: Cholecystectomy /COUNSEL: Hysterectomy - Present Medications Home Medications: Ambulatory Orders Medication Instructions Recorded Confirmed Atenolol 100 mg PO DAILY 03/21/14 04/07/17 Clopidogrel Bisulfate [Plavix] 75 mg PO DAILY 09/16/16 04/07/17 Omeprazole 20 mg PO BIDAC 04/07/17 04/07/17 Acetaminophen [Tylenol] 650 mg PO Q6HR PRN #30 tablet 04/08/17 - Allergies Allergies/Adverse Reactions: Allergies Allergy/AdvReac Type Severity Reaction Status Date / Time iopamidol [From Isovue-128] Allergy Anaphylaxis Verified 04/06/17 15:11 acetaminophen [From Percocet] AdvReac Unknown Verified 04/06/17 12:03 aspirin AdvReac Unknown Verified 04/06/17 12:03 caffeine [From Norgesic] AdvReac Unknown Verified 04/06/17 12:03 codeine phosphate * AdvReac Unknown Verified 04/06/17 12:03 [From Tylenol-Codeine #3] hydrochlorothiazide AdvReac Unknown Verified 04/06/17 12:03 ibuprofen AdvReac Unknown Verified 04/06/17 12:03 indomethacin AdvReac Unknown Verified 04/06/17 12:03 meperidine HCl * AdvReac Unknown Verified 04/06/17 12:03 [From Demerol] NSAIDS (Non-Steroidal AdvReac Unknown Verified 04/06/17 12:03 Anti-Inflamma orphenadrine AdvReac Unknown Verified 04/06/17 12:03 orphenadrine citrate * AdvReac Unknown Verified 04/06/17 12:03 [From Norgesic] oxycodone HCl * AdvReac Unknown Verified 04/06/17 12:03 [From Percocet] tolmetin AdvReac Unknown Verified 04/06/17 12:03 - Social History Does the pt smoke?: No Smoking Status: Never smoker Does the pt drink ETOH?: No Does the pt have substance abuse?: No - Immunizations Immunizations are current?: No - POLST Patient has POLST: No PD ED PE NORMAL - Vitals Vital signs reviewed: Yes - HEENT HEENT: Moist mucous membranes, Other (no oral swelling) - Cardiac Cardiac: RRR - Respiratory Respiratory: No respiratory distress, Clear bilaterally, Other (no wheeze or stridor) - Derm Derm: Other (L 5th finger red and swollen no retained stinger) Results - Vitals Vitals: Vital Signs - 24 hr 07/04/18 10:24 Temperature 36.5 C Heart Rate 64 Respiratory 18 Rate Blood Pressure 129/65 O2 Saturation 99 Oxygen O2 Source Room air PD MEDICAL DECISION MAKING - ED course ED course: no anaphyxis pt has many med allergies but can take benadryl so gave that will obs short period and dc if no progression Departure - Departure Disposition: 01 Home, Self Care Clinical Impression: Wasp sting Qualifiers: Encounter type: initial encounter Injury intent: accidental or unintentional Qualified Code(s): T63.461A - Toxic effect of venom of wasps, accidental (unintentional), initial encounter Condition: Good Instructions: ED Allergic Reaction Local Other Follow-Up: NATY YOUNG MD [Primary Care Provider] - Comments: Take benadryl every 6 hr as needed until symptoms resolved Ice wrapped in a towel or sock for 20 minutes at a time will help too
[2018-07-04] MEDS ORDERED: diphenhydrAMINE INJ 50 MG/ML VIAL ONE (11:17)
[2018-07-04 12:02] VITALS: BP 154/80
== END 2018-07-04 12:02 | disposition home or self-care (01) ==
LOC: ED 10:22
DX: T63.461A Toxic effect of venom of wasps, accidental (unintentional), initial encounter (principal)
CPT/HCPCS: 96372; 99283; J1200

== ENCOUNTER 2021-01-26 14:07 | Outpatient (CLI) | payer MEDICARE, OTHER | END 2021-01-26 14:08 | disposition home or self-care (01) | LOC: COV 14:07 | PROVIDERS: ATTEND Family Medicine | DX: Z20.822 Contact with and (suspected) exposure to COVID-19 (principal) ==

== ENCOUNTER 2023-03-19 07:53 | Outpatient (CLI) | payer MEDICARE, OTHER ==
--- NOTE | 2023-03-19 13:32 | DEXA Report ---
PROCEDURE: Dexa Spine and/or Hip INDICATIONS: POST MENOPAUSAL TECHNIQUE: Dual energy x-ray absorptiometry (DXA) was performed on a [employer] System. Regions measur ed are the AP Spine, femoral neck, and if needed forearm. COMPARISON: 07/02/2017 FINDINGS: Lumbar Spine: Bone Mineral Density 1.307 g/cm/cm,T score 0.9. Since the most recent prior study, there has been a statistically significant increase in bone mineral density by 7.6 percent. Left Femoral Neck: Bone Mineral Density 0.904 g/cm/cm, T score -1.0. There has been no statistically significant change in bone mineral density since the prior study. Left Hip: Bone Mineral Density 0.936 g/cm/cm,T score -0.6. There has been no statistically significant change i n bone mineral density since the prior study. (T score greater or equal to -1.0: NORMAL) (T score from -1.1 to -2.4: OSTEOPENIA) (T score less than or equal to -2.5 to: OSTEOPOROSIS) Impression: By WHO criteria, this patient has normal bone density. Interval statistical increase in bone minteral density of the lumbar spine. No statistical interval c hange in bone minteral density of the hip. Patients with diagnosis of osteoporosis or osteopenia should have regular bone mineral density assess ment. For those eligible for Medicare, routine testing is allowed once every 2 years. Testing frequ ency can be increased for patients who have rapidly progressing disease or for those who are receivin g medical therapy to restore bone mass. Reviewed by: Wilfrid Botello MD on 03/19/2023 10:28 AM PDT Approved by: Wilfrid Botello MD on 03/19/2023 10:28 AM PDT Station ID: [id number]
== END 2023-03-19 07:54 | disposition home or self-care (01) ==
LOC: DI 07:53
PROVIDERS: ATTEND Student in an Organized Health Care Education/Training Program
DX: Z78.0 Asymptomatic menopausal state (principal); E11.42 Type 2 diabetes mellitus with diabetic polyneuropathy